=== PATIENT | female | born 1935 | race Two or more races ===

== ENCOUNTER 2018-04-17 18:40 | Inpatient (IN) | payer OTHER, MEDICAID, MEDICARE ==
[~2018-04-17] VITALS: Ht 165.1 cm; Wt 60.9 kg
[2018-04-17] MEDS ORDERED: SODIUM CHLORIDE 0.9% 1,000 ML IVB ONE ×2 (19:10→20:20)
[2018-04-17] MEDS ORDERED: ONDANSETRON HCL 4 MG/2 ML VIAL IV ONE (19:15)
[2018-04-17] MEDS ORDERED: MORPHINE SULFATE 4 MG/ML SYR/VIAL IV ONE (19:15)
[2018-04-17 19:50] LABS: Basophils # (auto) 0 uL; Basophils % (auto) 0.1 % (0.0-2.0); Eosinophils # (auto) 0 uL; Eosinophils % (auto) 0.1 % (0.0-7.0); Hematocrit 45.3 % (36.0-46.0); Hemoglobin 15.7 g/dL (12.2-16.2); Lymphocytes # (auto) 0.7 uL; Mean Corpuscular Hemoglobin 31.2 pg (28.0-32.0); Mean Corpuscular Hgb Conc. 34.7 g/dL (32.0-36.0); Mean Corpuscular Volume 89.8 fL (80.0-100.0); Monocytes # (auto) 0.6 uL; Monocytes % (auto) 5.5 % (0.0-12.0); Neutrophils # (auto) 9.4 uL; Neutrophils % (auto) 87.3 % (37.0-80.0); Platelet Count (auto) 196 10^3/uL (140-450); Red Blood Cells 5.04 10^6/uL (4.0-5.20); Red Cell Distribution Width 14.7 % (11.8-14.3); White Blood Cell 10.8 10^3/uL (4.4-10.8)
[2018-04-17 20:03] LABS: INR 0.94 (0.9-1.15); Partial Thromboplastin Time 26.5 sec (23.78-33.04); Prothrombin Time 10.1 sec (9.27-12.13)
[2018-04-17 20:11] LABS: Albumin 3.3 g/dL (3.4-5.0); BUN/Creatinine Ratio 30.4; Magnesium 2.7 mg/dL (1.6-2.6); Potassium 3.8 mmol/L (3.5-5.1); Total Protein 7.7 g/dL (6.4-8.2)
[2018-04-17] MEDS ORDERED: cefTRIAXone 1GM/10ml IVPUSH 10 ML IV ONE (20:30)
[2018-04-17 21:23] LABS: Urine Bacteria MANY /hpf (None Seen); Urine Blood Negative /uL (Negative); Urine Mucus FEW (None Seen); Urine Specific Gravity 1.027 (1.001-1.035); Urine WBC 30 /hpf (0 - 5)
[2018-04-18] VITALS (7 sets, daily range): BP systolic 132–147; BP diastolic 74–90
[2018-04-18] MEDS ORDERED: SODIUM CHLORIDE 0.9% 1,000 ML IV SCH (02:00)
[2018-04-18] MEDS ORDERED: ONDANSETRON HCL 4 MG/2 ML VIAL IV PRN (02:00)
[2018-04-18] MEDS ORDERED: ACETAMINOPHEN 500 MG TAB PO PRN (02:00)
[2018-04-18] MEDS ORDERED: SODIUM CHLORIDE 0.9% 1,000 ML IV ONE (02:15)
[2018-04-18] MEDS ORDERED: DEXTROSE (50%) 50ML SYRG IV PRN (03:45)
[2018-04-18 05:53] LABS: Basophils # (auto) 0 uL; Basophils % (auto) 0.1 % (0.0-2.0); Eosinophils # (auto) 0.1 uL; Hematocrit 40.6 % (36.0-46.0); Hemoglobin 13.9 g/dL (12.2-16.2); Lymphocytes # (auto) 0.9 uL; Lymphocytes % (auto) 13.8 % (10.0-50.0); Mean Corpuscular Hemoglobin 30.9 pg (28.0-32.0); Mean Corpuscular Hgb Conc. 34.1 g/dL (32.0-36.0); Mean Corpuscular Volume 90.7 fL (80.0-100.0); Monocytes # (auto) 0.4 uL; Monocytes % (auto) 6.5 % (0.0-12.0); Neutrophils # (auto) 5.3 uL; Neutrophils % (auto) 78.6 % (37.0-80.0); Nucleated Red Blood Cells % 0.1 %; Platelet Count (auto) 167 10^3/uL (140-450); Red Blood Cells 4.48 10^6/uL (4.0-5.20); Red Cell Distribution Width 14.4 % (11.8-14.3); White Blood Cell 6.8 10^3/uL (4.4-10.8)
[2018-04-18] MEDS: InsuLIN REG 1unit/0.01ml Soln (100units/ml) SC SCH ×4 (06:00→23:59)
[2018-04-18] MEDS: ACCU-CHEK COMFORT CURVE STRIP VI SCH ×4 (06:09→23:57)
[2018-04-18 06:15] LABS: BUN/Creatinine Ratio 32.3; Calcium 8.7 mg/dL (8.5-10.1); Potassium 4.1 mmol/L (3.5-5.1)
[2018-04-18] MEDS: DIGOXIN 0.125 MG TAB PO SCH (10:11)
[2018-04-18] MEDS: HYDROcodone-ACET 5/325MG TAB PO PRN ×3 (10:12→19:43)
[2018-04-18] MEDS: CARBIDOPA W LEVODOPA 25/100mg TABLET PO SCH ×2 (14:00→22:23)
[2018-04-18] MEDS: MORPHINE SULFATE 4 MG/ML SYR/VIAL IV PRN (16:36)
[2018-04-18] MEDS: cefTRIAXone 1GM/10ml IVPUSH 10 ML IV SCH (22:23)
[2018-04-18] MEDS: MEMANTINE HCL 5 MG TAB PO SCH (22:23)
[2018-04-19] MEDS: MORPHINE SULFATE 4 MG/ML SYR/VIAL IV PRN (04:37)
[2018-04-19 05:00] VITALS: BP 146/80
[2018-04-19] MEDS: CARBIDOPA W LEVODOPA 25/100mg TABLET PO SCH ×3 (06:00→21:23)
[2018-04-19] MEDS: InsuLIN REG 1unit/0.01ml Soln (100units/ml) SC SCH ×4 (06:00→23:46)
[2018-04-19] MEDS: ACCU-CHEK COMFORT CURVE STRIP VI SCH ×4 (06:00→23:38)
[2018-04-19] MEDS ORDERED: TRANEXAMIC ACID 20 ML ONE (07:18)
[2018-04-19] MEDS ORDERED: BUPIVACAINE W/ EPINEPH 0.25% INJ 50ML MDV ONE (07:19)
[2018-04-19] MEDS ORDERED: MORPHINE SULF(PF) 0.5MG/ML 10ML VIAL ONE (07:20)
[2018-04-19] MEDS ORDERED: KETOROLAC TROMETH 30 MG/ML 1ML VIAL ONE (07:20)
[2018-04-19] MEDS ORDERED: VANCOMYCIN HCL 1000 MG VL ONE (07:21)
[2018-04-19] MEDS ORDERED: ceFAZolin 1GM/50ML 50 ML IV ONE (07:21)
[2018-04-19] MEDS ORDERED: ACETAMINOPHEN IV 100 ML IV ONE (07:22)
[2018-04-19 07:44] LABS: Basophils # (auto) 0 uL; Basophils % (auto) 0.2 % (0.0-2.0); Eosinophils # (auto) 0.1 uL; Eosinophils % (auto) 1.9 % (0.0-7.0); Hematocrit 42.2 % (36.0-46.0); Hemoglobin 14.6 g/dL (12.2-16.2); Lymphocytes # (auto) 0.9 uL; Lymphocytes % (auto) 14.9 % (10.0-50.0); Mean Corpuscular Hemoglobin 31.1 pg (28.0-32.0); Mean Corpuscular Hgb Conc. 34.5 g/dL (32.0-36.0); Monocytes # (auto) 0.4 uL; Monocytes % (auto) 6.4 % (0.0-12.0); Neutrophils # (auto) 4.8 uL; Neutrophils % (auto) 76.6 % (37.0-80.0); Platelet Count (auto) 187 10^3/uL (140-450); Red Blood Cells 4.69 10^6/uL (4.0-5.20); Red Cell Distribution Width 13.8 % (11.8-14.3); White Blood Cell 6.3 10^3/uL (4.4-10.8)
[2018-04-19] MEDS ORDERED: SUCCINYLCHOLINE CHLORIDE 20 MG/ML 10ML VIAL IV ONE (07:50)
[2018-04-19] MEDS ORDERED: LIDOCAINE 1% (LOCAL ANESTH.) PF 5ml SDV ONE (07:50)
[2018-04-19 07:56] LABS: INR 0.93 (0.9-1.15); Partial Thromboplastin Time 26.6 sec (23.78-33.04)
[2018-04-19] MEDS ORDERED: ROCURONIUM 10MG/ML 10ML VIAL IV ONE (08:03)
[2018-04-19] MEDS ORDERED: PROPOFOL 10 MG/ML 20 ML IV ONE (08:03)
[2018-04-19] MEDS ORDERED: fentaNYL CITRATE 100 MCG/2 ML VL ONE (08:03)
[2018-04-19 08:04] LABS: BUN/Creatinine Ratio 34.6; Calcium 9.4 mg/dL (8.5-10.1); Potassium 3.7 mmol/L (3.5-5.1)
[2018-04-19] MEDS ORDERED: hydrALAZINE HCL 20 MG/ML VL IV PRN (09:45)
[2018-04-19] MEDS ORDERED: ONDANSETRON HCL 4 MG/2 ML VIAL IV ONE (09:45)
[2018-04-19] MEDS ORDERED: LACTATED RINGER'S 1,000 ML IV SCH (09:45)
[2018-04-19] MEDS ORDERED: MORPHINE SULFATE 4 MG/ML SYR/VIAL IV PRN (09:45)
[2018-04-19] MEDS ORDERED: ePHEDrine SULFATE 50 MG/ML AMP IV PRN (09:45)
[2018-04-19] MEDS: DIGOXIN 0.125 MG TAB PO SCH (11:02)
[2018-04-19] MEDS: MEMANTINE HCL 5 MG TAB PO SCH ×2 (11:02→21:23)
[2018-04-19 13:00] VITALS: BP 140/82
[2018-04-19] MEDS: SODIUM CHLOR 0.9% PF (SALINE LOCK) 10ML VIAL/SYR IV SCH ×2 (15:08→21:22)
[2018-04-19] MEDS: ceFAZolin 1GM/50ML 50 ML IV SCH ×2 (15:08→21:04)
[2018-04-19 17:00] VITALS: BP 131/72
[2018-04-19] MEDS ORDERED: CLON05T PO (17:10)
[2018-04-19] MEDS ORDERED: HAL5T PO (17:10)
[2018-04-19] MEDS ORDERED: DIGO0.1262 PO (17:10)
[2018-04-19] MEDS ORDERED: BENZ1TAB2 PO (17:10)
[2018-04-19] MEDS ORDERED: IBUP600T27 PO (17:10)
[2018-04-19] MEDS ORDERED: APIX2.5T PO (17:10)
[2018-04-19] MEDS ORDERED: HALO5INJ12 SL (17:10)
[2018-04-19] MEDS ORDERED: ALL100T PO (17:10)
[2018-04-19] MEDS ORDERED: GLIP-115 PO (17:10)
[2018-04-19] MEDS ORDERED: ROPI0.5T18 PO (17:10)
[2018-04-19] MEDS ORDERED: RASA1TAB4 PO (17:10)
[2018-04-19] MEDS ORDERED: OXYB5TAB61 PO (17:10)
[2018-04-19] MEDS: cefTRIAXone 1GM/10ml IVPUSH 10 ML IV SCH (21:22)
[2018-04-19 22:00] VITALS: BP 138/85
[2018-04-20] MEDS: ceFAZolin 1GM/50ML 50 ML IV SCH (04:42)
[2018-04-20] MEDS: MORPHINE SULFATE 4 MG/ML SYR/VIAL IV PRN ×2 (04:44→10:46)
[2018-04-20 05:00] VITALS: BP 144/77
[2018-04-20] MEDS: CARBIDOPA W LEVODOPA 25/100mg TABLET PO SCH ×3 (06:02→22:13)
[2018-04-20] MEDS: ACCU-CHEK COMFORT CURVE STRIP VI SCH ×3 (06:02→17:30)
[2018-04-20] MEDS: SODIUM CHLOR 0.9% PF (SALINE LOCK) 10ML VIAL/SYR IV SCH ×3 (06:02→22:13)
[2018-04-20] MEDS: InsuLIN REG 1unit/0.01ml Soln (100units/ml) SC SCH ×3 (06:18→17:30)
[2018-04-20 09:00] VITALS: BP 129/79
[2018-04-20 09:45] LABS: Hematocrit 35.8 % (36.0-46.0); Hemoglobin 12.1 g/dL (12.2-16.2)
[2018-04-20] MEDS: MEMANTINE HCL 5 MG TAB PO SCH ×2 (10:44→22:13)
[2018-04-20] MEDS: DIGOXIN 0.125 MG TAB PO SCH (10:44)
[2018-04-20] MEDS: ENOXAPARIN SOD 40 MG/0.4 ML SYRINGE SC SCH (10:45)
[2018-04-20 14:23] VITALS: BP 127/74
[2018-04-20] MEDS ORDERED: MORPHINE SULFATE 4 MG/ML SYR/VIAL IV PRN (15:30)
[2018-04-20] MEDS: HYDROcodone-ACET 5/325MG TAB PO PRN (19:55)
[2018-04-20 22:00] VITALS: BP 136/75
[2018-04-20] MEDS: cefTRIAXone 1GM/10ml IVPUSH 10 ML IV SCH (22:13)
[2018-04-21] MEDS: ACCU-CHEK COMFORT CURVE STRIP VI SCH ×4 (00:03→17:32)
[2018-04-21] MEDS: InsuLIN REG 1unit/0.01ml Soln (100units/ml) SC SCH ×4 (00:10→17:32)
[2018-04-21 05:08] VITALS: BP_SYST 109; BP_SYST 134; BP_DIAS 53; BP_DIAS 68
[2018-04-21] MEDS: CARBIDOPA W LEVODOPA 25/100mg TABLET PO SCH ×3 (06:08→23:22)
[2018-04-21] MEDS: HYDROcodone-ACET 5/325MG TAB PO PRN ×3 (06:09→17:36)
[2018-04-21] MEDS: SODIUM CHLOR 0.9% PF (SALINE LOCK) 10ML VIAL/SYR IV SCH ×3 (06:09→23:22)
[2018-04-21 08:03] LABS: Hematocrit 36.2 % (36.0-46.0); Hemoglobin 12.1 g/dL (12.2-16.2)
[2018-04-21 09:00] VITALS: BP 111/70
[2018-04-21] MEDS: MEMANTINE HCL 5 MG TAB PO SCH ×2 (10:42→23:22)
[2018-04-21] MEDS: DIGOXIN 0.125 MG TAB PO SCH (10:42)
[2018-04-21] MEDS: ENOXAPARIN SOD 40 MG/0.4 ML SYRINGE SC SCH (10:43)
[2018-04-21 13:00] VITALS: BP 136/74
[2018-04-21 17:00] VITALS: BP 147/79
[2018-04-21 22:00] VITALS: BP 145/70
[2018-04-21] MEDS: cefTRIAXone 1GM/10ml IVPUSH 10 ML IV SCH (23:22)
[2018-04-22 05:00] VITALS: BP 142/71
[2018-04-22] MEDS: ACCU-CHEK COMFORT CURVE STRIP VI SCH ×3 (06:00→12:00)
[2018-04-22] MEDS: InsuLIN REG 1unit/0.01ml Soln (100units/ml) SC SCH ×3 (06:00→12:00)
[2018-04-22] MEDS: SODIUM CHLOR 0.9% PF (SALINE LOCK) 10ML VIAL/SYR IV SCH (06:09)
[2018-04-22] MEDS: CARBIDOPA W LEVODOPA 25/100mg TABLET PO SCH (06:17)
[2018-04-22 06:51] LABS: Hematocrit 35.5 % (36.0-46.0); Hemoglobin 12.6 g/dL (12.2-16.2)
[2018-04-22 09:01] VITALS: BP 111/69
[2018-04-22] MEDS: ENOXAPARIN SOD 40 MG/0.4 ML SYRINGE SC SCH (10:27)
[2018-04-22] MEDS: DIGOXIN 0.125 MG TAB PO SCH (10:27)
[2018-04-22] MEDS: MEMANTINE HCL 5 MG TAB PO SCH (10:27)
[2018-04-22] MEDS: HYDROcodone-ACET 5/325MG TAB PO PRN (10:54)
== END 2018-04-22 11:54 | disposition hospice, home (50) | DRG 469 ==
LOC: EDBD 18:40 → ER 18:40 → OVERFLOW 18:41 → WEST WING 04-18 03:16
PROVIDERS: ADMIT Nurse Practitioner Family; ATTEND Hospitalist
PROC: 0SRR0JZ Replacement of Right Hip Joint, Femoral Surface with Synthetic Substitute, Open Approach (ICD-10-PCS; principal; 2018-04-19 07:58)
DX: M80.051A Age-related osteoporosis with current pathological fracture, right femur, initial encounter for fracture (principal); J69.0 Pneumonitis due to inhalation of food and vomit; N39.0 Urinary tract infection, site not specified; J44.0 Chronic obstructive pulmonary disease with (acute) lower respiratory infection; S72.011A Unspecified intracapsular fracture of right femur, initial encounter for closed fracture; E11.9 Type 2 diabetes mellitus without complications; I11.0 Hypertensive heart disease with heart failure; F03.90 Unspecified dementia, unspecified severity, without behavioral disturbance, psychotic disturbance, mood disturbance, and anxiety; I50.9 Heart failure, unspecified; F17.200 Nicotine dependence, unspecified, uncomplicated; G20 Parkinson's disease; I48.2 Chronic atrial fibrillation; Z96.659 Presence of unspecified artificial knee joint; W01.0XXA Fall on same level from slipping, tripping and stumbling without subsequent striking against object, initial encounter; Y92.009 Unspecified place in unspecified non-institutional (private) residence as the place of occurrence of the external cause; Z91.81 History of falling; Y93.89 Activity, other specified; Y99.8 Other external cause status
CPT/HCPCS: 36415; 70450; 71045; 72170; 72192; 73502; 80048; 80053; 80162; 81001; 82962; 83605; 83735; 83880; 85014; 85018; 85025; 85610; 85730; 86850; 86900; 86901; 87040; 87086; 87088; 87186; 93005; 93306; 96361; 96365; 96375; 97110; 97163; J0131; J0330; J0690; J0696; J1815; J1885; J2405; J2704